=== PATIENT | male | born 1935 | race Caucasian/White ===

== ENCOUNTER → 2017-08-17 | Outpatient (CLI) | payer OTHER | LOC: HYPER 08-15 08:05 | DX: E11.622 Type 2 diabetes mellitus with other skin ulcer (principal); L89.323 Pressure ulcer of left buttock, stage 3; L98.411 Non-pressure chronic ulcer of buttock limited to breakdown of skin; S80.812A Abrasion, left lower leg, initial encounter; S80.811A Abrasion, right lower leg, initial encounter; L08.89 Other specified local infections of the skin and subcutaneous tissue; M25.561 Pain in right knee; E11.22 Type 2 diabetes mellitus with diabetic chronic kidney disease; I12.9 Hypertensive chronic kidney disease with stage 1 through stage 4 chronic kidney disease, or unspecified chronic kidney disease; N18.3 Chronic kidney disease, stage 3 (moderate); K74.69 Other cirrhosis of liver; I48.2 Chronic atrial fibrillation; E66.09 Other obesity due to excess calories; Z68.31 Body mass index [BMI] 31.0-31.9, adult; Z85.820 Personal history of malignant melanoma of skin; Z87.891 Personal history of nicotine dependence; X58.XXXA Exposure to other specified factors, initial encounter; Y93.89 Activity, other specified; Y92.89 Other specified places as the place of occurrence of the external cause; Y99.8 Other external cause status ==

== ENCOUNTER → 2017-09-17 | Outpatient (CLI) | payer OTHER | LOC: HYPER 06:52 | DX: E11.622 Type 2 diabetes mellitus with other skin ulcer (principal); L89.152 Pressure ulcer of sacral region, stage 2; L98.491 Non-pressure chronic ulcer of skin of other sites limited to breakdown of skin; S81.802D Unspecified open wound, left lower leg, subsequent encounter; S81.801D Unspecified open wound, right lower leg, subsequent encounter; E11.22 Type 2 diabetes mellitus with diabetic chronic kidney disease; I12.9 Hypertensive chronic kidney disease with stage 1 through stage 4 chronic kidney disease, or unspecified chronic kidney disease; N18.3 Chronic kidney disease, stage 3 (moderate); E66.09 Other obesity due to excess calories; I48.2 Chronic atrial fibrillation; Z68.31 Body mass index [BMI] 31.0-31.9, adult; Z85.828 Personal history of other malignant neoplasm of skin; Z87.891 Personal history of nicotine dependence; X58.XXXD Exposure to other specified factors, subsequent encounter ==